=== PATIENT | female | born 1980 | race Hispanic/Latino ===

== ENCOUNTER 2018-11-24 00:05 | Emergency (ER) | payer OTHER ==
[2018-11-24 01:16] LABS: BASOPHILS % (AUTO) 0.5 % (0.0-5.0); EOSINOPHILS % (AUTO) 0.8 % (0.0-8.0); HEMATOCRIT 31.1 % (36-48); LYMPHOCYTES % (AUTO) 28.8 % (21.0-51.0); MEAN CORPUSCULAR HEMOGLOBIN 19.7 pg (27.0-33.0); MEAN CORPUSCULAR HGB CONC 30.3 g/dL (32.0-36.0); MEAN CORPUSCULAR VOLUME 65.1 fL (79-99); MONOCYTES % (AUTO) 5.7 % (3.0-13.0); NEUTROPHILS % (AUTO) 64.2 % (40.0-77.0); PLATELET COUNT (AUTO) 410 K/uL (130-400); RED BLOOD CELL COUNT(AUTO) 4.77 MIL/uL (4.00-5.50); RED CELL DISTRIBUTION WIDTH 25.1 % (11.0-15.5); WHITE BLOOD COUNT (AUTO) 11.5 K/uL (4.8-10.8)
== END 2018-11-24 02:26 | disposition home or self-care (01) ==
LOC: EDH 00:05
DX: O20.0 Threatened abortion (principal); Z3A.09 9 weeks gestation of pregnancy
CPT/HCPCS: 36415; 76801; 84702; 85025; 86900; 86901

== ENCOUNTER 2018-11-29 22:10 | Emergency (ER) | payer OTHER ==
[2018-11-29 23:06] LABS: BASOPHILS % (AUTO) 0.3 % (0.0-5.0); EOSINOPHILS % (AUTO) 0.8 % (0.0-8.0); HEMATOCRIT 31.9 % (36-48); LYMPHOCYTES % (AUTO) 26.1 % (21.0-51.0); MEAN CORPUSCULAR HEMOGLOBIN 20.8 pg (27.0-33.0); MEAN CORPUSCULAR HGB CONC 31.3 g/dL (32.0-36.0); MEAN CORPUSCULAR VOLUME 66.3 fL (79-99); MONOCYTES % (AUTO) 4.3 % (3.0-13.0); NEUTROPHILS % (AUTO) 68.5 % (40.0-77.0); PLATELET COUNT (AUTO) 354 K/uL (130-400); RED CELL DISTRIBUTION WIDTH 27.7 % (11.0-15.5)
== END 2018-11-30 00:11 | disposition home or self-care (01) ==
LOC: EDH 22:10
DX: O20.0 Threatened abortion (principal); O24.419 Gestational diabetes mellitus in pregnancy, unspecified control; Z3A.09 9 weeks gestation of pregnancy
CPT/HCPCS: 36415; 85025; 86900; 86901

== ENCOUNTER 2025-03-11 13:41 | Emergency (ER) | payer BC, MEDICAID ==
[~2025-03-11] VITALS: Ht 165.1 cm; Wt 145.1 kg
[2025-03-11] MEDS: 0.9%NACL 1000ML 1,000 ML IV STA (14:04)
[2025-03-11 14:07] LABS: IMMATURE GRANULOCYTE ABSOLUTE 0.04 K/uL (0-1); NUCLEATED RED BLOOD CELLS 0.0 % (0.0-0.19); PLATELET COUNT (AUTO) 334 K/uL (130-400); RED BLOOD CELL COUNT(AUTO) 4.50 MIL/uL (4.00-5.50); RED CELL DISTRIBUTION WIDTH 16.2 % (11.0-15.5); WHITE BLOOD COUNT (AUTO) 8.3 K/uL (4.8-10.8)
[2025-03-11 14:24] LABS: CREATININE 0.9 mg/dL (0.5-1.0); GLOMERULAR FILTR. RATE CALC 80.0 mL/min (>90); GLUCOSE,RANDOM 282.0 mg/dL (70-105); SODIUM SERUM 136.0 mmol/L (136-145); UREA NITROGEN, BLOOD 9.0 mg/dL (7-18)
[2025-03-11 15:00] VITALS: TEMP 98.5
[2025-03-11] MEDS ORDERED: IOHEXOL 350 MG/ML 100ML INFUS..BTL IV ONE (15:19)
[2025-03-11 15:26] LABS: APPEARANCE,URINE CLEAR (CLEAR); GLUCOSE, URINE (UA) 30 mg/dL (NEGATIVE); LEUKOCYTE ESTERASE ,URINE NEGATIVE Leu/uL (NEGATIVE); NITRATE,URINE NEGATIVE (NEGATIVE); OCCULT BLOOD,URINE NEGATIVE (NEGATIVE)
[2025-03-11 15:29] LABS: ADD UA MICROSCOPIC YES
[2025-03-11 15:31] LABS: NON-SQUAMOUS EPITHELIAL CELL <1 /HPF (0-2); SQUAMOUS EPITHELIAL CELL,UR FEW /HPF (0-2)
--- NOTE | 2025-03-11 16:22 | HMCIMG ---
EXAM: CT Abdomen and Pelvis with Intravenous Contrast CLINICAL HISTORY: 44-year-old female with generalized abdominal pain and a history of hernias. TECHNIQUE: Axial computed tomography images of the abdomen and pelvis with intravenous contrast. Dose reduction technique was used including one or more of the following: automated exposure control, adjustment of mA and kV according to patient size, and/or iterative reconstruction. CONTRAST: Standard dose of IV contrast COMPARISON: None provided. FINDINGS: LUNG BASES: Atelectasis is seen at the lung bases. LIVER: Mild fatty liver. There is some focal fatty sparing in the right lobe of the liver. GALLBLADDER AND BILE DUCTS: Unremarkable. No calcified stone. No ductal dilation. PANCREAS: Unremarkable. SPLEEN: Unremarkable. ADRENAL GLANDS: Unremarkable. KIDNEYS, URETERS, AND BLADDER: Symmetric excretion of contrast from the kidneys. No hydronephrosis or nephrolithiasis. No ureteral or bladder calculi. STOMACH AND BOWEL: No obstruction. No wall thickening. No CT evidence of colitis or acute diverticulitis. APPENDIX: Normal appendix. No CT evidence for appendicitis. PERITONEUM: No free fluid. No free air. LYMPH NODES: No lymphadenopathy. REPRODUCTIVE: The uterus and adnexa are unremarkable. VASCULATURE: No aortic aneurysm. ABDOMINAL WALL AND SOFT TISSUES: Umbilical hernia containing mesenteric fat only. BONES: No fracture or suspicious osseous abnormality. IMPRESSION: 1. No acute findings. 2. Mild hepatic steatosis with focal fatty sparing in the right lobe. 3. Umbilical hernia containing mesenteric fat only. /[place]
[2025-03-11 16:34] VITALS: BP 139/68; PULSE 75; RESP 19; O2SAT 99
--- NOTE | 2025-03-11 16:55 | ERN ---
ED Note History of Present Illness Stated Complaint: ABD HERNIA Chief Complaint: Abdominal Pain Time Seen by MD: 13:42 Time Seen by Midlevel: 13:45 Dictation: 44-year-old female coming in with complaints of generalized abdominal pain. Patient states she has a history of a hernia in his concerned for possible incarceration. Patient states she has already consulted with Dr. Clark, pending outpatient scheduled surgery. Allergies: Coded Allergies: No Known Allergies (Unverified Allergy, Unknown, 03/11/25) Past Medical History Past Medical History: Anemia, Diabetes-Type II Additional Past Medical Hx: HERNIA Surgical History: Other, LMP: Mar 03, 2025 Review of System Dictation Constitutional: Negative for fever,chills, and weight loss Eyes: Negative for injury, pain,redness, and discharge ENT: Negative for injury,pain or swelling Cardiovascular: Negative for chest pain, palpitations, and edema Respiratory: Negative for shortness of breath, cough, and wheezing, Abdomen/GI: Abdominal pain, no nausea, no vomiting, no diarrhea, and no constipation Back: Negative for injury and pain : Negative for injury, bleeding and discharge MS/Extremity: Negative for injury and deformity Skin: Negative for rash, and discoloration Neuro: Negative for headache, weakness, numbness, tingling, and seizure Psych: Negative for suicide ideation, homicidal ideation, and hallucinations Review of Systems: was completed Initial Vital Sign VS Vital Signs Date Time Temp Pulse Resp B/P (MAP) Pulse Ox O2 Delivery O2 Flow Rate FiO2 03/11/25 13:42 98.2 88 16 156/78 97 Room Air 0 03/11/25 14:10 21 Physical Exam Dictation General: awake, alert, NAD Head/Face: Normocephalic, atraumatic Eyes: PERRL, EOMI, vision at baseline ENT: oral cavity clear, TMs clear, no signs of infection Neck: Trachea midline, supple, no nuchal rigidity Cardiovascular: RRR, normal S1/S2, No MRGs, no JVD Respiratory: CTAB, no respiratory distress, No rales or wheezes Abdomen: Soft, non-tender, non-distended, normal bowel sounds, no guarding or rebound. Skin: Warm, dry, normal turgor, no rash MS/Extremity: Pulses equal, no cyanosis, neurovascular intact, FROM Neuro: COAx4, GCS 15, strength 5/5, CN 2-12 intact, normal cerebellar exam, normal gait, Psych: Normal behavior, mood, and affect normal Results (Laboratory/Radiology) Laboratory/Radiology Laboratory Tests Test 03/11/25 14:01 03/11/25 15:14 White Blood Count 8.3 K/uL (4.8-10.8) Red Blood Count 4.50 MIL/uL (4.00-5.50) Hemoglobin 11.3 g/dL (12.0-16.0) L Hematocrit 36.0 % (36-48) Mean Corpuscular Volume 80.0 fL (79-99) Mean Corpuscular Hemoglobin 25.1 pg (27.0-33.0) L Mean Corpuscular Hemoglobin Concent 31.4 g/dL (32.0-36.0) L Red Cell Distribution Width 16.2 % (11.0-15.5) H Platelet Count 334 K/uL (130-400) Mean Platelet Volume 9.6 fL (7.5-10.5) Immature Granulocyte % (Auto) 0.5 % (0-1) Neutrophils (%) (Auto) 63.4 % (40.0-77.0) Lymphocytes (%) (Auto) 27.8 % (21.0-51.0) Monocytes (%) (Auto) 5.2 % (3.0-13.0) Eosinophils (%) (Auto) 2.5 % (0.0-8.0) Basophils (%) (Auto) 0.6 % (0.0-5.0) Neutrophils # (Auto) 5.2 K/uL (1.8-7.7) Lymphocytes # (Auto) 2.3 K/uL (1.0-4.8) Monocytes # (Auto) 0.4 K/uL (0.1-1.0) Eosinophils # (Auto) 0.21 K/uL (0.00-0.70) Basophils # (Auto) 0.05 K/uL (0.00-0.20) Absolute Immature Granulocyte (auto 0.04 K/uL (0-1) Nucleated Red Blood Cells 0.0 % (0.0-0.19) Sodium Level 136 mmol/L (136-145) Potassium Level 4.7 mmol/L (3.5-5.1) Chloride Level 98 mmol/L (101-111) L Carbon Dioxide Level 30 mmol/L (21-32) Blood Urea Nitrogen 9 mg/dL (7-18) Creatinine 0.9 mg/dL (0.5-1.0) Glomerular Filtration Rate Calc 80 mL/min (>90) Random Glucose 282 mg/dL (70-105) H Total Calcium 8.9 mg/dL (8.5-10.1) Urine Color YELLOW (YELLOW) Urine Appearance CLEAR (CLEAR) Urine pH 6.0 (5.0-8.0) Urine Specific [place] 1.026 (1.001-1.031) Urine Protein 20 mg/dL (NEGATIVE) H Urine Glucose (UA) 30 mg/dL (NEGATIVE) H Urine Ketones 10 mg/dL (NEGATIVE) H Urine Occult Blood NEGATIVE (NEGATIVE) Urine Nitrate NEGATIVE (NEGATIVE) Urine Bilirubin NEGATIVE mg/dL (NEGATIVE) Urine Urobilinogen 0.2 mg/dL (0.2-1.0) Urine Leukocyte Esterase NEGATIVE [place]/uL Urine RBC 2-5 /HPF (0-1) H Urine WBC 2-5 /HPF (0-1) H Urine Squamous Epithelial Cells FEW /HPF (0-2) Urine Non-Squamous Epithelial Cells <1 /HPF (0-2) Urine Bacteria RARE /HPF (None Seen) CT Scan Comment: [address] [address] IMAGING REPORT Signed PATIENT: STEPHANIE TERAN MR#: [id number] : 1980 SEX: F AGE: 44 LOCATION: [facility] ORDER [id number] STATUS: REG ER REPORT#: [id number] SERVICE 1347 REASON: generanlized abdominal pain, hx of hernias ORDERING PHYSICIAN: SCOTTY ACEVEDO NP PROCEDURE: ABD PEL W - CT ABDOMEN/PELVIS W/CONTRAST EXAM: CT Abdomen and Pelvis with Intravenous Contrast CLINICAL HISTORY: 44-year-old female with generalized abdominal pain and a history of hernias. TECHNIQUE: Axial computed tomography images of the abdomen and pelvis with intravenous contrast. Dose reduction technique was used including one or more of the following: automated exposure control, adjustment of mA and kV according to patient size, and/or iterative reconstruction. CONTRAST: Standard dose of IV contrast COMPARISON: None provided. FINDINGS: LUNG BASES: Atelectasis is seen at the lung bases. LIVER: Mild fatty liver. There is some focal fatty sparing in the right lobe of the liver. GALLBLADDER AND BILE DUCTS: Unremarkable. No calcified stone. No ductal dilation. PANCREAS: Unremarkable. SPLEEN: Unremarkable. ADRENAL GLANDS: Unremarkable. KIDNEYS, URETERS, AND BLADDER: Symmetric excretion of contrast from the kidneys. No hydronephrosis or nephrolithiasis. No ureteral or bladder calculi. STOMACH AND BOWEL: No obstruction. No wall thickening. No CT evidence of colitis or acute diverticulitis. APPENDIX: Normal appendix. No CT evidence for appendicitis. PERITONEUM: No free fluid. No free air. LYMPH NODES: No lymphadenopathy. REPRODUCTIVE: The uterus and adnexa are unremarkable. VASCULATURE: No aortic aneurysm. ABDOMINAL WALL AND SOFT TISSUES: Umbilical hernia containing mesenteric fat only. BONES: No fracture or suspicious osseous abnormality. IMPRESSION: 1. No acute findings. 2. Mild hepatic steatosis with focal fatty sparing in the right lobe. 3. Umbilical hernia containing mesenteric fat only. /[place] DICTATED BY: HERMELINDA RUSSELL MD DATE: 03/11/251720 ELECTRONICALLY SIGNED BY: HERMELINDA RUSSELL MD DATE: 03/11/251720 ED Course ED Course Orders Procedure Category Date Status Time Cbc With Differential LAB 03/11/25 Complete 13:47 Basic Metabolic Panel LAB 03/11/25 Complete 13:47 Urinalysis Profile LAB 03/11/25 Complete 13:47 Ct Abdomen/Pelvis CT 03/11/25 Resulted W/Contrast 13:47 0.9%Nacl 1000ml (Ns PHA 03/11/25 Complete 1000ml) 13:47 Ondansetron 4mg Inj PHA 03/11/25 Complete (Zofran 4mg Inj) 13:47 Morphine 2mg Syg PHA 03/11/25 Complete (Morphine 2mg Syg) 13:47 Iohexol (Omnipaque) PHA 03/11/25 Complete 15:19 Morphine 4mg Syg PHA 03/11/25 Logged (Morphine 4mg Syg) 16:46 Current Medications Medications (Trade) Dose Ordered Sig/Aimee Route PRN Reason Start Time Stop Time Status Last Admin Dose Admin Iohexol (Omnipaque) 35,000 mg STK-MED ONCE IV 03/11/25 15:19 03/11/25 15:19 DC Morphine Sulfate (morPHINE 2MG SYG) 2 mg ONCE STAT IVP 03/11/25 13:47 03/11/25 13:49 DC 03/11/25 14:04 Morphine Sulfate (morPHINE 4MG SYG) 4 mg ONCE STAT IVP 03/11/25 16:46 03/11/25 16:47 UNV Ondansetron HCl (zoFRAN 4MG INJ) 4 mg ONCE STAT IVP 03/11/25 13:47 03/11/25 13:49 DC 03/11/25 14:04 Sodium Chloride 1,000 ml @ 1,000 mls/hr Q1H STAT IV 03/11/25 13:47 03/11/25 14:46 DC 03/11/25 14:04 Vital Signs Date Time Temp Pulse Resp B/P (MAP) Pulse Ox O2 Delivery O2 Flow Rate FiO2 03/11/25 16:34 75 19 139/68 99 Room Air* 0 21 03/11/25 15:00 98.4 78 20 142/80 99 Room Air* 0 21 03/11/25 14:10 93 19 152/71 99 Room Air* 0 21 03/11/25 13:42 98.2 88 16 156/78 97 Room Air 0 Medical Decision Making MDM MDM: 44-year-old female coming in with complaints of generalized abdominal pain. Patient states she has a history of a hernia in his concerned for possible incarceration. Patient states she has already consulted with Dr. Clark, pending outpatient scheduled surgery. Blood work is unremarkable. CT scan shows a hernia with fat containing contents, and hepatic steatosis. Discussed findings with the patient. On reassessment patient states feels better after pain medication. Educated patient she needs to follow up outpatient with Dr. Clark as scheduled. Patient verbalized understanding, answered all questions. Differential diagnosis: Incarcerated hernia, SBO, hernia Rationale: Tests considered and ordered secondary to shared decision making include: Previous outside records reviewed: Old ER visits. Risk of complication and/or morbidity or mortality of patient management: None Medications-Per medication reconciliation Need for hospitalization: Patient does not meet criteria for hospitalization. Need for emergency major/minor surgery: No There are no social concerns with this patient. Prescription drug management Prescriptions will include symptomatic care Patient's prior external medical records from other ER visits were reviewed by me as indicated. Prior testing and results from previous visits were reviewed. Prior tests were taken into account with medical decision making and resource utilization, independent historian/historians were used to obtain complete [facility] history. I independently interpreted the test that were performed, results were reviewed by me and considered findings on radiology if ordered. Medical management and examination interpretation discussions were had by me with other qualified healthcare professionals as indicated for the patient's care. DX & DISP Disposition: Discharge Departure Impression: Primary Impression: Hernia Additional Impression: Hepatic steatosis Condition: Stable Additional Instructions: Follow up with Dr. Clark as scheduled please, take Tylenol or Motrin [id number] for pain control. Return to the hospital for worsening symptoms. Referrals: SELF,REFERRAL (PCP) DELFINO MANNING MD Time of Disposition: 16:54 I have reviewed the case, and I agree with, Diagnosis and Plan SCOTTY ACEVEDO NP Mar 11, 2025 16:55
== END 2025-03-11 17:09 | disposition home or self-care (01) ==
LOC: EDH 13:41
DX: K42.9 Umbilical hernia without obstruction or gangrene (principal); K76.0 Fatty (change of) liver, not elsewhere classified; E11.9 Type 2 diabetes mellitus without complications
CPT/HCPCS: 99284; 74177; 96374; 96361; 96375; 80048; 85025; 81001; 36415; 96376; J2270 ×2; J7030; J2405; Q9967